=== PATIENT | female | born 1965 | race Caucasian/White ===

== ENCOUNTER 2021-02-23 05:24 | Day surgery (SDC) | payer SELFPAY, OTHER ==
[2020-10-31 14:19] VITALS: BMI 29.6
--- NOTE | 2021-02-22 09:01 | EKG12_ITS ---
Test Reason : PREOP Blood Pressure : / mmHG Vent. Rate : 069 BPM Atrial Rate : 069 BPM P-R Int : 166 ms QRS Dur : 080 ms QT Int : 434 ms P-R-T Axes : 059 030 080 degrees QTc Int : 465 ms Normal sinus rhythm Nonspecific T wave abnormality Prolonged QT Abnormal ECG Confirmed by ELVIA PATEL, FRANSISCA ([id number]), scientific editor ALEXANDRA DACOSTA ([id number]) on 02/23/2021 7:25:25 AM Referred By: Liliana Duran Confirmed By:FRANSISCA GAN MD
[2021-02-22 10:29] LABS: Absolute Neutrophil Count 2.8 X10^3/uL (2.0-7.7); Basophil# 0.03 X10^3/uL; Basophil% 0.6 % (0-1); Eosinophil# 0.28 X10^3/uL; Eosinophils% 5.4 % (0-5); Hematocrit 44.9 % (37-47); Hemoglobin 14.8 g/dL (12.0-15.0); Lymphocyte % 32.7 % (19-41); Mean Corpuscular Volume 90.9 fL (81-99); Mean Platelet Vol. 9.8 fl (6.2-12.0); Monocyte# 0.39 X10^3/uL; Monocyte% 7.5 % (0-10); NRBC Flagged by Analyzer 0 % (0-5); Neutrophil % 53.8 % (47-70); Platelet Count 232 K/mm3 (150-450); RBC Distribution Width SD 43.2 fl (35.1-43.9); Red Blood Count 4.94 M/mm3 (4.2-5.4); White Blood Count 5.2 K/mm3 (4.4-11.0)
[2021-02-22 10:53] LABS: Magnesium 2.2 mg/dL (1.6-2.6)
[2021-02-22 11:04] LABS: ALB/GLOB Ratio 0.9 RATIO (0.9-2.4); AST(SGOT) 14 U/L (15-37); Alanine Aminotransfer ALT/SGPT 24 U/L (13-56); Albumin, Serum 3.6 g/dL (3.2-5.0); Alkaline Phosphatase 84 U/L (45-117); Anion Gap 6 (5-15); BUN 9 mg/dL (7-18); BUN/Creat Ratio 14.2 RATIO (10-20); Calcium,Total 8.9 mg/dL (8.5-10.1); Chloride 106 mmol/L (98-107); Creatinine, Serum 0.64 mg/dL (0.55-1.02); EST Glomerular Filtration Rate 103 mL/min (>60); Est Glom Filt Rate - Afr Amer 124 mL/min (>60); Globulin 3.8 g/dL (2.2-4.2); Glucose 86 mg/dL (74-106); Protein, Total 7.4 g/dL (6.4-8.2); Sodium Level 141 mmol/L (136-145)
[2021-02-23] VITALS (14 sets, daily range): BP systolic 99–147; BP diastolic 53–103; PULSE 64–81; RESP 12–16; TEMP 36.1–37.1; O2SAT 92–100; BMI 32.8
[2021-02-23] MEDS: Celecoxib 200 MG Capsule 400 MG PO (06:22)
[2021-02-23] MEDS: Enoxaparin 40 MG/0.4 ML Syringe SC (06:22)
[2021-02-23] MEDS: Acetaminophen 500 MG Tablet 1000 MG PO ×3 (06:22→18:05)
[2021-02-23] MEDS: Gabapentin 600 MG Tablet PO (06:23)
[2021-02-23] MEDS: dexAMETHasone 10 MG/ML Vial 8 MG IV (06:23)
[2021-02-23] MEDS: Scopolamine 1mg/72hr Patch 1 PATCH TD (06:23)
[2021-02-23] MEDS: Lactated Ringers 1,000 ML 40 ML IV ×2 (06:24→08:45)
--- NOTE | 2021-02-23 07:16 | HP.PCM_ITS ---
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 she has uterine prolapse and will be having a TVHBS combo case with Dr Victor. Female Reproductive History Menopausal Symptoms: Yes hot flashes, Yes night sweats, No difficulty concentrating and No change in libido Pregancy History 6 Elective abortions Hx Para 6 Spontaneous abortions Hx # Term Pregnancies Ectopic pregnancies Hx # Pregnancies Multiple births # of living children ROS Const Constitutional: Reports night sweats Eyes Eyes: Denies system reviewed and no additional complaints, except as documented, as per HPI, blurry vision, change in vision, diplopia, dry eyes, irritation, loss of peripheral vision, photophobia, spots in vision or other ENT ENT: Reports system reviewed and no additional complaints, except as documented Cardio Card: Denies chest pain Resp Resp: Denies cough or dyspnea GI GI: Reports constipation; Denies abdominal pain, bloating, change in stool character, fecal incontinence, nausea or vomiting : Reports hot flashes, prolapse symptoms, urinary incontinence and vaginal dryness; Denies pelvic pain, sexual dysfunction, urinary frequency, urinary urgency, vaginal discharge, vaginal odor or vaginal pruritus Musc Musc: Denies arthralgias, back pain or muscle weakness Skin Skin/Breast: Denies system reviewed and no additional complaints, except as documented, as per HPI, acne, alopecia, change in hair, nail changes, change in pigmentation, changing lesions, dry skin, hirsutism, jaundice, lesions, new lesions, pruritus, rash, sores, breast mass, breast pain, breast skin changes or other Neuro Neuro: Reports system reviewed and no additional complaints, except as documented Psych Psych: Denies anxiety, change in libido, depression or difficulty concentrating Endo Endo: Denies cold intolerance, excessive sweating, heat intolerance or polydipsia Timmy/Lymph Hematologic/Lymphatic: Denies system reviewed and no additional complaints, except as documented, Denies as per HPI, Denies easy bleeding, Denies easy bruising, Denies lymphadenopathy and Denies other Exam Const General: cooperative, healthy appearing, comfortable, no acute distress and well developed Orientation: alert [facility] Head: normal to inspection, normocephalic and atraumatic Ears: hearing grossly normal bilaterally and external ears normal Nose: external nose normal and nares normal Face and sinus: normal facial exam Neck Neck: normal visual inspection, full ROM, no lymphadenopathy and trachea midline Thyroid: thyroid normal Chest Chest palpation & inspection: normal inspection of the chest Breast inspection: normal inspection of the breasts, normal inspection of the axillae, abnormal inspection of the axilla and abnormal inspection of the breast Resp Effort & Inspection: normal respiratory effort Auscultation: clear to auscultation bilaterally Cardio Rate: regular rate Rhythm: regular rhythm Heart Sounds: S1 normal and S2 normal GI Inspection: normal to inspection and non-distended Palpation: soft, no hepatosplenomegaly, no hepatomegaly, not rigid and nontender General: bladder normal to palpation External Female Exam: abnormal external appearance (atrophic introitus), normal appearance of the urethra and no lesions Urethra: normal appearance of the urethra Speculum Exam - Vagina: abnormal appearance of the vagina, normal vaginal discharge, vagina atrophic and no lesions Speculum Exam - Cervix: normal appearance of the cervix Bimanual Exam- Vagina & Uterus: normal bimanual exam, uterine size normal, bladder normal to palpation, uterine shape normal, uterine mobility normal and non-tender Bimanual Exam- Adnexa, other: normal adnexae, no masses, rectocele, cystocele and vaginal apex descent Pelvic Support: cystocele severe, rectocele severe, vaginal apex descent severe and other (complete uterine procidentia) Musc Other: gross motor intact no deficits, full bilateral strength Skin General: no rashes or lesions noted and atrophy Neuro General: patient alert, patient awake, moves all extremities and no focal motor deficits Motor: muscle tone normal throughout Extrem General: normal to inspection and no pedal edema Psych Appearance: grossly normal Mental Status: mental status grossly normal Affect: normal affect Speech and Movement: speech and movement normal Coding Level of Care Code No Charge Diagnoses Uterine procidentia N81.3 Assessment and Plan Assessment and Plan (1) Uterine procidentia: Status: Acute Comment: plan TVHBS, combo case with fidel- referred for evaluation by her Plan - Dr. Liliana Duran MD: After discussing the patient's diagnosis and treatment plan options, patient wishes to proceed with surgical management. I have discussed with the patient the risks, benefits, and alternatives of the procedure which include but are not limited to risks of anesthesia, bleeding, infection, possible damage to bowel, bladder, or surrounding vasculature which could lead to additional surgery to evaluate any complications. Patient agrees to procedure and wishes to proceed. ACOG/uptodate references given for additional information regarding procedure. 02/05/21 0441 UPDATE- I have seen the patient and performed any clinically relevant updates to the history and physical exam. Liliana Duran MD
--- NOTE | 2021-02-23 07:17 | OP.PCM_ITS ---
Problems Associated Problem List Diagnoses (1) Uterine procidentia: (2) S/P vaginal hysterectomy: Report of Operation Date of Procedure: 02/23/21 Pre-Operative Diagnosis: see PL Post-Operative Diagnosis: same Surgery/Procedure Performed:: TVH BS Description of Surgical Findings:: nl uterus tubes fast food manager: John Martinez Type of Anesthesia: General Specimen's removed: uterus, tubes, ovaries Drains: casey Fluids Replaced: crystalloid Description of Procedure: Patient was taken to the operating room and was placed under general anesthesia was prepped and draped in normal sterile fashion in the dorsal lithotomy position. Preoperative antibiotics and SCDs and Casey catheter was placed inside the bladder. Weighted speculum was placed in the vagina and the anterior and posterior lip of the cervix was grasped with 2 Mynor clamps and circumferentially injected with dilute vasopressin. A circumferential incision was made with a scalpel and the posterior cul-de-sac was entered into sharply and a longneck speculum was placed. The anterior cul-de-sac was also dissected down and entered into sharply and the uterosacral ligaments were clamped cut and suture ligated bilaterally followed by the cardinal ligaments which were Clamped cut and suture ligated bilaterally with 0 Monocryl. The uterus serially descended and progressive bites were taken bilaterally up to the level of the utero-ovarian ligament bilaterally which was clamped transected and double ligated with 0 Monocryl suture and 0 Vicryl free tie. Bilateral fallopian tubes and ovaries were well visualized and noted be within normal limits and the mesosalpinx was transected across the base with a alie clamp, then tubes removed and the pedicle ligated with O monocryl. Excellent hemostasis was noted. The vagina was closed with [id number] 0 Vicryl pop offs including the posterior and anterior peritoneum in the reapproximation. Excellent hemostasis was noted. Then Dr. Victor began her portion of the procedure. Grafts/Implants Used: none Complications none Admit VTE Documentation VTE Present on Admission: No VTE Mechan Device Prophylaxis: SCD's VTE Pharm Prophylaxis ordered?: Yes Multi Select Codes Urinary/Genital Urinary/Genital CPT Codes: 90828 TVH+BS/O <250gr uterus
--- NOTE | 2021-02-23 07:20 | PCM.DC ---
Discharge Instructions Diet Discharge Diet: No restrictions Activity Discharge Activity: Return to Normal Activity, May Not Drive (while taking narcotic pain medications.) and May Shower May resume sexual activity in: 6-8 weeks Dressing / Incision Call your doctor if your incision/area has: Continuous Slow Oozing, Sudden Increased Bleeding, Increased Pain/ Swelling, Increased Redness and Foul Smelling Discharge Call your doctor if you observe: Fever of 101 or Higher, Inability to urinate, Inability to have a bowel movement and Using more than 1 pad per hour Follow Up Care Please Follow Up With: Liliana Duran MD Test Results: Test results from this visit will be discussed in further detail at your follow-up appointment, if applicable. Discharge Plan Admission Primary Reason for Your Visit: hysterectomy Attending Provider: Liliana Duran Primary Care Provider: Juan Antonio Lopez Discharge Orders/Prescriptions Prescriptions: New naproxen 250 MG tablet 250 - 500 mg PO Q8H PRN PRN (Reason: MILD PAIN) Qty: 30 RF: 1 oxycodone-acetaminophen [Percocet] 5-325 mg tablet 1 tab PO Q6H PRN (Reason: pain) 7 Days Qty: 20 RF: 0 Referrals / Follow Up: Juan Antonio Lopez DO [Primary Care Provider] - Disposition Disposition (needs filled in before D/C Order can be placed): Home, Self Care
--- NOTE | 2021-02-23 07:30 | HYST_PTH ---
PATIENT: DOROTA CANADA LOC: [facility] [place] U#:[id number] AGE/SX: 55/F ROOM: RE02/23/[address]: Dr. Liliana Duran MD : [id number] BED: DIS: 02/24/2021 SPEC #: [id number] RECD: 02/23/21 14:29 STATUS: ZOYA REKatrina #: [id number] RASHAWN: 02/23/21 07:[address]: Liliana Duran DEPT: SURGICAL PATHOLOGY RECD BY: Dequan uFlton ENTERED: 02/26/21 08:13 SP TYPE: HYSTERECT OTHR DR: Dr. Juan Antonio Lopez DO Tissues: Uterus, NOS Procedures: Surgery Specimen Level V HEADER OPERATION: ERAS, vaginal hysterectomy, salpingectomy PRE-OP DIAGNOSIS: Uterine procidentia TISSUE SUBMITTED: Uterus, cervix, bilateral fallopian tubes MICROSCOPIC DIAGNOSIS Uterus, hysterectomy: Cervix ? hyperkeratosis, nabothian cysts, squamous metaplasia and mild chronic inflammation. Endometrium ? weakly proliferative to inactive endometrium. Myometrium ? adenomyosis. Right and left fallopian tube - no pathologic change. AM:elder 02/27/2021 MICROSCOPIC DESCRIPTION Slides are reviewed. GROSS DESCRIPTION Received in fixative is one container labeled with the patient's name and designated uterus, cervix and bilateral fallopian tubes. The specimen consists of a hysterectomy specimen consisting of uterus with cervix and detached bilateral fallopian tubes. The uterus with cervix weighs 98 gm and measures 11 x 5 x 3.5 cm. The serosal surface is franco, glistening. The ectocervical mucosa is unremarkable. The external os is oval in contour. The endocervical canal measures 3.5 cm in length and the endocervical mucosa is franco, glistening and unremarkable. The endometrial cavity measures 4.5 cm in length and 1 cm in width. The endometrium is franco, glistening without any mass lesion and measures <0.1 cm in thickness. Sections of the uterine wall do not reveal any mass lesion and it measures up to 2 cm in width. The fallopian tubes are not identified as right or left. One of the fallopian tubes measure 3 cm in length and 0.5 cm in diameter. The fimbrial end is identified. Sections reveal unremarkable cut surfaces. The second fallopian tube measures 3 cm in length and 0.5 cm in diameter. It is similar appearance to the first one. Food Writer sections are submitted in eight cassettes as follows: 1 - anterior cervix, 2 - posterior cervix, 3 & 4 - anterior uterine wall, 5 & 6 - posterior uterine wall, 7 - one fallopian tube, 8 - second fallopian tube. / SEAN:elder 02/26/21 TC:5 CPT: 81827
[2021-02-23] MEDS: Cefazolin 2 GM in 0.9% Normal Saline 100 ML IV (07:46)
[2021-02-23] MEDS: Vasopressin 20 UNITS/ML Vial (10:00)
[2021-02-23 10:16] LABS: Bedside Glucose 78 mg/dL (70-110)
[2021-02-23] MEDS: Ondansetron 4 MG/2 ML Vial IV (11:07)
[2021-02-23] MEDS: Estrogens,Conj. 1 Tube 1 DOSE (11:13)
--- NOTE | 2021-02-23 11:23 | OP.PCM_ITS ---
Problems Associated Problem List Diagnoses (1) Uterine procidentia: (2) PHANI (stress urinary incontinence, female): Report of Operation Date of Procedure: 02/23/21 Pre-Operative Diagnosis: Uterine procidentia, stress urinary incontinence Post-Operative Diagnosis: Same Surgery/Procedure Performed:: Anterior and posterior repair with dermis, bilateral sacrospinous ligament fixation, mid urethral sling, cystoscopy with bilateral ureteral catheterization Surgeon: Ashwini Victor Type of Anesthesia: General Specimen's removed: None Estimated Blood Loss (mL): 50 cc Description of Procedure: The patient is a 55-year-old female with uterine procidentia and stress urinary incontinence who has undergone preoperative assessment with urodynamics and cystoscopy but now presents for definitive surgical intervention. Informed consent was obtained. The patient was taken to the operating room and placed on the operating room table. Anesthesia monitored the head, neck, airway, IV access and vital signs throughout the case. Once anesthesia was appropriate ministered the patient was placed into dorsal lithotomy in Trendelenburg position. Dependent portions of her body were appropriately padded and secured to the table, and she was prepped and draped in usual sterile fashion. At this time a Ang catheter 16 Tristanian was inserted to straight drain and the bladder was emptied. Dr. Duran proceeded with her portion of the procedure and close the cuff at the end. At this time I isolated the anterior vaginal wall and injected submucosally vasopressin for hydrostatic dissection and hemostatic control. A midline vertical 2 cm incision was then made. Sharp and blunt dissection was performed bilaterally all the way until the ischial spines were palpable and freed from surrounding tissues. At this time the Capio device was utilized to pass an Ethibond suture through each sac rospinous ligament. The suture was then brought through the corner of the dermis on each side. It was tacked in the midline at the apex. The Ethibond was then tied into position and then brought out through the vaginal mucosa in full-thickness fashion at the area of the apex. This was done bilaterally. The dermis was then trimmed to length and sutured into position using interrupted 2- 0 Vicryl at the area of the bladder neck and bilaterally at the area of the white line. At this time the vaginal mucosa, while significantly redundant, was closed using running interlocking 2-0 Vicryl. At this time the patient was taken out of Trendelenburg positioning, the Ang catheter was removed and the cystoscope was inserted through the urethra under direct visualization into the urinary bladder. There were no areas of injury, foreign body, bleeding, or other abnormality identified. Each ureteral orifice was in the correct anatomic position and beginning with the left each was cannulated carefully with a 5 Tristanian whistle-tip catheter which was inserted to 20 cm without difficulty, obstruction or evidence of blood. The same process was repeated posteriorly with submucosal injection of vasopressin followed by incision and sharp and blunt dissection until the ischial spines were identified and the previous sutures were palpable. A second suture was then passed and the Ethibond was b rought through the remainder of the dermis and then out through the apex laterally full-thickness vaginal mucosa. Once again the dermis was tacked at the apex using 2-0 Vicryl. The Ethibonds were tied into position on each side. The dermis was trimmed to fit, sutured into position posteriorly close to the perineal body and bilaterally at the white line. This time the perineal body was reconstructed using 2-0 Vicryl interrupted sutures in a 2 layer closure. The posterior vaginal mucosa was then closed using running interlocking 2-0 Vicryl. The mid urethra was isolated and injected submucosally with vasopressin. A midline incision was made and sharp and blunt dissection was performed on either side of the urethra with care being taken to avoid entrance into the urethra or the vaginal mucosa. Using the trochars, the [place] mid urethral sling was inserted into position through the obturator complexes bilaterally using the tines. It was positioned using the tensioning suture and was flat against the urethra. The tensioning suture was cut and the mucosa was closed over the sling using running interlocking 2-0 Vicryl. At this time the Ang catheter was removed and the cystoscope was inserted through the urethra under direct visualization into the urinary bladder. The bladder mucosa and the urethral mucosa were visualized in their entirety revealing no evidence of injury, foreign body mass, lesion or area of abnormality. The ureteral orifices were located in the area of the trigone and were gently cannulated with a 5 Tristanian whistle-tip catheter which was easily inserted to 20 cm on each side without evidence of obstruction or blood. At this time the cystoscope was removed and the Ang catheter was inserted. The vagina was packed with Premarin cream and vaginal packing. The patient was awakened and taken to the recovery room in good condition. There were no complications during this procedure. Grafts/Implants Used: Dermis, Altis mid urethral sling Complications None Admit VTE Documentation VTE Present on Admission: Yes VTE Mechan Device Prophylaxis: SCD's VTE Pharm Prophylaxis ordered?: Yes
--- NOTE | 2021-02-23 11:46 | HP.PCM_ITS ---
HPI - General General Date of Admission: 02/23/21 HPI Narrative I am dictating this is my previously submitted history and physical is not identified in the chart. DOROTA CANADA, is a 55 F who presents for surgical intervention for her uterine procidentia and incontinence. Informed consent was obtained. [facility] Medical History History of echocardiogram Hypertension Non-smoker Post-menopausal PHANI (stress urinary incontinence, female) Wears dentures Wears glasses Home Medications naproxen 250 - 500 mg PO Q8H PRN PRN #30 tab 02/23/21 [Rx Last Taken Unknown] oxycodone-acetaminophen [Percocet] 1 tab PO Q6H PRN 7 Days #20 tab 02/23/21 [Rx Last Taken Unknown] Allergy/AdvReac Type Severity Reaction Status Date / Time No Known Allergies Allergy Verified 02/23/21 05:31 Social History Smoking Status: Never smoker alcohol intake: never caffeine: No seatbelt use: always do you feel safe at home: Yes additional social history: Jesus DE LA O Constitutional Constitutional: Denies body ache(s), change in weight, chills, fatigue, fever(s) or weakness Eyes Eyes: Denies change in vision ENT HEENT: Reports systems reviewed and no addt'l complaints, except as documented Cardiovascular Cardiovascular: Denies dizziness, dyspnea, fatigue, tachypnea or vomiting Respiratory/Chest Respiratory/Chest: Denies chest congestion, chest tightness or cough Gastrointestinal Gastrointestinal: Denies change in stool character, nausea, vomiting or weight changes Genitourinary Genitourinary: Reports urinary incontinence and urinary urgency; Denies abdominal discomfort, anuria or burning urination Musculoskeletal Musculoskeletal: Reports systems reviewed and no addt'l complaints, except as documented Integumentary Integumentary: Reports systems reviewed and no addt'l complaints, except as documented Neurologic Neurologic: Reports systems reviewed and no addt'l complaints, except as documented Psychiatric Psychiatric: Reports systems reviewed and no addt'l complaints, except as documented Endocrine Endocrinology: Reports systems reviewed and no addt'l complaints, except as documented Hematologic/Lymphatic Hematologic/Lymphatic: Reports systems reviewed and no addt'l complaints, except as documented Allergic/Immunologic Allergic/Immunologic: Reports systems reviewed and no addt'l complaints, except as documented Vital Signs Vital Signs Vital Signs: 02/23/21 06:25 02/23/21 11:26 Temperature 98.4 F 97.6 F L Temperature Source Temporal Temporal Pulse Rate 77 71 Respiratory Rate 16 16 Respiratory Pattern Normal Normal Blood Pressure 147/103 H 101/66 Blood Pressure Mean 117 77 Blood Pressure Source Monitor Monitor Blood Pressure Position Semi-Fowlers Semi-Fowlers Blood Pressure Location Left Arm Right Arm Baseline BP 147/103 Pulse Ox 97 98 Oxygen Delivery Method Room Air Room Air Weight Weight: 92.4 kg Body Mass Index (BMI) 32.8 Physical Exam Const alert, oriented x3 and no apparent distress General Appearance: cooperative HEENT hearing grossly normal bilaterally, external nose normal and gingiva normal Eyes conjunctivae normal General Eye: normal appearance of both eyes Neck supple General: trachea midline Lymph Lymphatic: no lymphedema noted Chest inspection of chest normal Chest: symmetrical chest wall rise Resp normal respiratory effort, normal air movement, no retractions and no use of accessory muscles Cardio regular rate and regular rhythm GI soft to palpation, non-tender, non-distended and no masses no CVA tenderness Narrative: Total procidentia on examination Back/Spine no CVA tenderness Extremity normal to inspection Skin no rashes or lesions noted, no wounds, skin turgor normal, no jaundice, no petechiae and no mottling Neuro oriented x3, CN's II-XII intact bilaterally and moves all extremities Psych mental status grossly normal, thought process normal, cooperative and affect normal Results Lab / Micro Data Result Diagrams: 02/22/21 09:20 02/22/21 09:20 Labs: Laboratory Results - last 24 hr 02/22/21 09:20: Blood Type B POSITIVE, Antibody Screen NEGATIVE 02/23/21 06:06: POC Glucose 78 Micro: Microbiology 02/22/21 09:00 Interface Orders SARS-CoV-2 Antigen (Rapid) - Final Assessment & Plan Assessment/Plan (1) PAHNI (stress urinary incontinence, female): (2) Uterine procidentia: PLAN: Proceed with anterior and posterior repair, bilateral sacrospinous ligament fixation, mid urethral sling and cystoscopy under anesthesia in combination with Dr. Duran. Informed consent obtained.
[2021-02-23] MEDS: Lactated Ringers 1,000 ML 70 ML IV (13:20)
[2021-02-23] MEDS: Docusate Sodium 100 MG Capsule PO ×2 (14:07→21:51)
[2021-02-23] MEDS: Ketorolac 30 MG/ML Syringe IV ×2 (14:09→18:05)
--- NOTE | 2021-02-23 15:57 | NURSING ---
reviewed documentation by Alirio Rutledge, student RN
[2021-02-23] MEDS: Ondansetron ODT 4 MG Tablet PO (17:23)
--- NOTE | 2021-02-23 21:36 | PCS.PANDOC ---
PANDEMIC DOCUMENTATION INITIATED: Date: 12/11/2020 Time: 190
[2021-02-23] MEDS: Cephalexin 500 MG Capsule PO (21:51)
[2021-02-24] MEDS: Acetaminophen 500 MG Tablet 1000 MG PO (00:53)
[2021-02-24 01:06] VITALS: BP 106/56; PULSE 84; RESP 16; TEMP 37.1; O2SAT 92
--- NOTE | 2021-02-24 01:36 | NURSING ---
This RN had pt change wagner pad. When the pt stood her surgical packing came out. This was disposed of. No additional bleeding immediately following.
[2021-02-24] MEDS: Lactated Ringers 1,000 ML 70 ML IV (04:28)
[2021-02-24 06:22] VITALS: BP 100/55; PULSE 74; RESP 17; TEMP 37.1; O2SAT 94
--- NOTE | 2021-02-24 06:53 | PCM.PN.OB ---
Subjective Subjective Patient doing well without complaints. Tolerating PO. Ambulating without difficulty. Denies chest pain, shortness of breath, calf pain/swelling, fevers, chills, lightheadedness.need to void yet cath in Objective Data Objective Data Vital Signs: Vital Signs Temp Pulse Resp BP Pulse Ox 98.7 F 74 17 100/55 L 94 02/24/21 06:22 02/24/21 06:22 02/24/21 06:22 02/24/21 06:22 02/24/21 06:22 Oxygen Flow Rate (L/min) 2 Oxygen Delivery Method Room Air Weight: 203 lb 11.314 oz Body Mass Index (BMI) 32.8 Intake & Output: Intake and Output for Last 24 Hours 02/22/21 02/23/21 02/24/21 23:59 23:59 23:59 Intake Total 2615.5 / 3115.5 1900 / 1900 Output Total 1575 / 1975 875 / 875 Balance 1040.5 / 1140.5 1025 / 1025 Lab / Micro Data Result Diagrams: 02/22/21 09:20 02/22/21 09:20 Labs: Laboratory Results - last 24 hr 02/23/21 06:06: POC Glucose 78 Micro: Microbiology 02/22/21 09:00 Interface Orders SARS-CoV-2 Antigen (Rapid) - Final ROS Constitutional Constitutional: Reports systems reviewed and no addt'l complaints, except as documented Cardiovascular Cardiovascular: Reports systems reviewed and no addt'l complaints, except as documented Respiratory/Chest Respiratory/Chest: Reports systems reviewed and no addt'l complaints, except as documented Gastrointestinal Gastrointestinal: Reports systems reviewed and no addt'l complaints, except as documented Physical Exam Const alert, oriented x3 and no apparent distress HEENT Head and Scalp: atraumatic Resp normal respiratory effort GI soft to palpation and non-tender Assessment & Plan (1) PHANI (stress urinary incontinence, female): (2) S/P vaginal hysterectomy: COMMENT: tvhbs (3) Uterine procidentia: COMMENT: plan TVHBS, combo case with fidel- referred for evaluation by her PLAN: patient is s/p tvh POD 1 1. routine ERAS protocol postop care- increase ambulation, encourage oral intake and oral control of pain. lovenox and scds for dvt prophylaxis, patient stable for discharge to home.
[2021-02-24 07:24] VITALS: O2SAT 94
[2021-02-24 07:50] LABS: Absolute Lymphocyte Count 0.96 X10^3/uL (0.83-4.51); Absolute Neutrophil Count 9.1 X10^3/uL (2.0-7.7); Basophil# 0.01 X10^3/uL; Basophil% 0.1 % (0-1); Hematocrit 36.4 % (37-47); Hemoglobin 12.3 g/dL (12.0-15.0); Lymphocyte # 0.96 X10^3/ul (0.83-4.51); Lymphocyte % 8.9 % (19-41); Mean Corp Hgb Conc 33.8 g/dL (32-36); Mean Corpuscular Hgb 30.4 pg (27.0-32.0); Mean Corpuscular Volume 90.1 fL (81-99); Mean Platelet Vol. 9.8 fl (6.2-12.0); Monocyte# 0.58 X10^3/uL; Monocyte% 5.4 % (0-10); NRBC Flagged by Analyzer 0 % (0-5); Neutrophil # 9.14 X10^3/uL (2.7-7.7); Neutrophil % 85.1 % (47-70); Platelet Count 211 K/mm3 (150-450); RBC Distribution Width CV 13.1 % (11.6-14.6); RBC Distribution Width SD 43.8 fl (35.1-43.9); Red Blood Count 4.04 M/mm3 (4.2-5.4); White Blood Count 10.7 K/mm3 (4.4-11.0)
[2021-02-24] MEDS: Cephalexin 500 MG Capsule PO (08:10)
[2021-02-24] MEDS: Docusate Sodium 100 MG Capsule PO (08:11)
[2021-02-24] MEDS: Enoxaparin 40 MG/0.4 ML Syringe SC (08:11)
--- NOTE | 2021-02-24 08:16 | PCM.DC ---
Discharge Instructions Diet Discharge Diet: No restrictions Activity Discharge Activity: May Shower May resume sexual activity in: 8 weeks Lifting Restrictions: 5 pounds Additional Activity Instructions:: No exercise, no strenuous activity, no sexual activity, no swimming, no hot tubs, no tub bathing Dressing / Incision Call your doctor if your incision/area has: Continuous Slow Oozing, Sudden Increased Bleeding, Increased Pain/ Swelling, Increased Redness and Foul Smelling Discharge Call your doctor if you observe: Fever of 101 or Higher, Inability to urinate, Inability to have a bowel movement, Using more than 1 pad per hour and Uncontrolled pain Additional Dressing/Incision Instructions:: continue estrogen cream Follow Up Care Please Follow Up With: Liliana Duran MD When: , call the office for appt. Test Results: Test results from this visit will be discussed in further detail at your follow-up appointment, if applicable. Discharge Plan Admission Primary Reason for Your Visit: hysterectomy Attending Provider: Liliana Duran Primary Care Provider: Juan Antonio Lopez Discharge Orders/Prescriptions Prescriptions: New naproxen 250 MG tablet 250 - 500 mg PO Q8H PRN PRN (Reason: MILD PAIN) Qty: 30 RF: 1 oxycodone-acetaminophen [Percocet] 5-325 mg tablet 1 tab PO Q6H PRN (Reason: pain) 7 Days Qty: 20 RF: 0 cephalexin [cephalexin] 500 MG capsule 500 mg PO Q12 3 Days Qty: 6 RF: 0 Referrals / Follow Up: Juan Antonio Lopez DO [Primary Care Provider] - Disposition Disposition (needs filled in before D/C Order can be placed): Home, Self Care
[2021-02-24 14:30] VITALS: BP 123/75; PULSE 81; RESP 16; TEMP 36.7; O2SAT 97
== END 2021-02-24 15:05 | disposition home or self-care (01) ==
LOC: SDC 05:25 → AC 05:26 → MS2 12:18
PROVIDERS: Anesthesiology; Urology; PCP Family Medicine; Referring Provider Obstetrics & Gynecology; Visit Provider Obstetrics & Gynecology
PROC: (CPT 58260; principal; 2021-02-23 07:10)
PROC: (CPT 57260; 2021-02-23 07:10)
DX: N81.3 Complete uterovaginal prolapse (principal); N39.3 Stress incontinence (female) (male); N87.0 Mild cervical dysplasia; N80.0 Endometriosis of uterus
CPT/HCPCS: 00942; 57260; 57282; 57288; 58262; 36415; 80053; 82962; 83735; 85025; 86850; 86900; 86901; 87426; 88307; 93005; 99251; C9803; J7120; C1758; G0463; J2405

== ENCOUNTER 2025-02-24 11:40 | Inpatient (IN) | payer OTHER, SELFPAY ==
[2025-02-24] VITALS (12 sets, daily range): BP systolic 130–182; BP diastolic 74–101; PULSE 89–107; RESP 14–38; TEMP 36.5–36.6; O2SAT 88–99; BMI 34.3; BMI 36.1
--- NOTE | 2025-02-24 11:55 | CT_ITS ---
PROCEDURE: CT/CTA Chest W/WO Contrast
--- NOTE | 2025-02-24 11:55 | EKG12_ITS ---
Test Reason : CP
--- NOTE | 2025-02-24 11:56 | ED.VIS.CHEST ---
HPI History of Present Illness Chief Complaint: Chest Pain Narrative Narrative: Patient is a 59-year-old female presenting to the emergency department for left-sided chest pain underneath her left breast. Patient states that it started last night. She is endorsing some mild shortness of breath with it as well. She had a recent surgery for prolapsed bladder about 2 weeks ago and stayed in the hospital overnight. She denies any history of DVT or PE. She is not on any OAC, denies any medication use daily. Patient denies fever, chills, diaphoresis, abdominal pain, nausea or vomiting denies any lower extremity edema. [facility] Medical History PHANI (stress urinary incontinence, female) Wears dentures Wears glasses Post-menopausal Non-smoker History of echocardiogram Hypertension Home Medications ?Medication ?Instructions ?Recorded ?Last Taken ?Type docusate sodium 100 mg capsule 100 mg PO BID constipation 02/24/25 02/24/25 History estradiol 0.01% (0.1 mg/gram) 1 g vaginal .COMPLEX 02/24/25 02/10/25 History vaginal cream oxycodone 5 mg tablet 5 mg PO Q6H PRN pain 02/24/25 02/24/25 History Allergy/AdvReac Type Severity Reaction Status Date / Time No Known Allergies Allergy Verified 02/24/25 11:44 Surgical History History of bilateral salpingectomy History of total vaginal hysterectomy (TVH) Social History Smoking Status: Never smoker alcohol intake: never caffeine: No seatbelt use: always do you feel safe at home: Yes additional social history: Jadon- ROS ROS ED ROS Narrative See HPI EXAM Physical Exam Narrative Exam Narrative: Vital signs: Reviewed General: Alert and orientedx3. No acute distress HEENT: Head is normocephalic and atraumatic, sinuses nontender, pupils equal round and reactive. Nares are patent. Oropharynx and throat exams normal. Neck: Supple without lymphadenopathy nontender Cardiovascular: Regular rate and rhythm, no murmurs. No rubs or gallops. Normal S1 and S2 Respiratory: Clear to auscultation bilaterally. No wheezes, rales, rhonchi. On 2 L NC. Abdominal: Soft and nontender. Normal bowel sounds. No guarding or rebound. Nonsurgical abdomen Extremities: No asymmetric lower extremity edema noted. No tenderness. No bruising. Normal range of motion. Normal sensation. Skin: No rash or redness. Neurological: Cranial nerves II through XII are grossly intact. Normal strength and sensation. Normal cerebellar function The rest of the physical exam is unremarkable Const Vital Signs: 02/24/25 11:42 02/24/25 11:44 02/24/25 11:57 Temperature 97.8 F 98 F Temperature Source Oral Temporal Pulse Rate 107 H 94 Respiratory Rate 24 H 32 H Respiratory Effort Normal Non-Labored Blood Pressure 182/101 H 142/91 H Blood Pressure Mean 128 108 Pulse Ox 88 95 Oxygen Delivery Method Room Air Nasal Cannula Oxygen Flow Rate (L/min) 2 02/24/25 12:02 02/24/25 12:23 02/24/25 12:41 Temperature Temperature Source Pulse Rate 92 Respiratory Rate 14 Respiratory Effort Blood Pressure 168/96 H Blood Pressure Mean 120 Pulse Ox 96 95 94 Oxygen Delivery Method Nasal Cannula Nasal Cannula Nasal Cannula Oxygen Flow Rate (L/min) 2 2 2 02/24/25 12:44 02/24/25 13:00 Temperature Temperature Source Pulse Rate 93 Respiratory Rate 36 H Respiratory Effort Blood Pressure 130/74 H Blood Pressure Mean 92 Pulse Ox 98 99 Oxygen Delivery Method Nasal Cannula Nasal Cannula Oxygen Flow Rate (L/min) 2 3 MDM MDM MDM Narrative Medical decision making narrative: Patient is a 5-year-old female presenting to the emergency department for left-sided chest pain. Patient was seen and examined. Vitals are stable. She is tachycardic at 107 and tachypneic at 24. Saturating 88% on room air, was then placed on 2 L nasal cannula. She is afebrile. Differential includes but is not limited to: PE, ACS, pneumonia With recent surgical procedure and tachycardia with new oxygen requirement secondary to hypoxia, concern for open embolism. CTA of the chest ordered. EKG shows sinus tachycardia with nonspecific ST and T wave abnormalities. CBC with mild leukocytosis at 12.5 and a normal hemoglobin. BMP with no significant abnormalities. Initial troponin of 28. BNP within normal limits at 77. CTA of the chest obtained due to high concern for pulmonary embolism given recent surgery. CTA shows multiple bilateral pulmonary emboli. Discussed findings with patient and at bedside. Still requiring 2 to 3 L nasal cannula, requires admission. Patient has no contraindications for initiation of heparin. Heparin bolus and drip started. Patient admitted to hospitalist, Dr. Chopra for further management. Clinical impression: Bilateral pulmonary emboli Chest pain Hypoxia History & Record Review Discussion w/independent historian: Patient and Family Lab Data Attestation: I reviewed the patient's lab results. Labs: Laboratory Results - last 24 hr 02/24/25 12:14 WBC 12.5 H RBC 4.59 Hgb 13.8 Hct 40.1 MCV 87.4 MCH 30.1 MCHC 34.4 RDW Std Deviation 42.3 RDW Coeff of Tonya 13.2 Plt Count 231 MPV 9.1 Immature Gran % (Auto) 0.400 Neut % (Auto) 82.2 H Lymph % (Auto) 10.1 L [place] % (Auto) 6.6 Eos % (Auto) 0.4 Baso % (Auto) 0.3 Absolute Neuts (auto) 10.3 H Absolute Lymphs (auto) 1.27 Nucleated RBC % 0 PT 13.7 INR 1.0 APTT 31.0 Sodium 134 Potassium 4.1 Chloride 98 Carbon Dioxide 23.8 Anion Gap 13 BUN 12 Creatinine 0.67 L Estim Creat Clear Calc 104.62 Est GFR (MDRD) Non-Af 100 BUN/Creatinine Ratio 17.5 Glucose 126 H Calcium 9.5 Troponin T High Sens 28 H NT pro BNP II 77 ABG Data ABG results: ABG 02/24/25 12:28 Specimen Type LUCIANA Sample Site Not entered VBG pH 7.43 H VBG pO2 59 H VBG HCO3 24 VBG Total CO2 25 VBG O2 Sat (Calc) 91 H VBG Base Excess 0 POC Mix VBG pCO2 Pt Tmp 36.4 L O2 Delivery Device Not entered Radiography Diagnostic Testing: Clinical Impression(s) from Imaging Studies Chest CTA 02/24/25 11:55 IMPRESSION: Multiple bilateral pulmonary emboli. Thrombus is seen within the distal portion of the right and left pulmonary arteries. Infiltration and/or atelectasis at the lung bases worse at the left lung base. Reading Location: [id number] Discharge Plan Disposition Disposition: Acute Care Hospital [facility] Discharge Date/Time: 02/24/25 14:28
[2025-02-24 12:31] LABS: Hematocrit 40.1 % (37-47); Hemoglobin 13.8 g/dL (12.0-15.0); Immature Granulocytes Count 0.050 X10^3/uL (0.0-0.0); Mean Corp Hgb Conc 34.4 g/dL (32-36); Mean Corpuscular Volume 87.4 fL (81-99); Mean Platelet Vol. 9.1 fl (6.2-12.0); NRBC Flagged by Analyzer 0 % (0-5); Platelet Count 231 K/mm3 (150-450); RBC Distribution Width CV 13.2 % (11.6-14.6); RBC Distribution Width SD 42.3 fl (35.1-43.9); Red Blood Count 4.59 M/mm3 (4.2-5.4); White Blood Count 12.5 K/mm3 (4.4-11.0)
[2025-02-24 12:33] LABS: SITE Not entered; VBG BASE EXCESS 0 mmol/L (-1.0-3.5); VBG PO2 59 mmHg (25-40); VBG SO2 91 % (50-70); VBG TCO2 25 mmol/L (23-33)
[2025-02-24] MEDS: Heparin Injection (Vial) 5,000 UNIT/ML VIAL 7500 UNIT IV (12:55)
[2025-02-24] MEDS: HEPARIN/D5w 25,000 UNITS 25,000 UNITS/250 ML IV.SOLN. 11.6 UNITS CONT INF (12:56)
[2025-02-24 12:59] LABS: Partial Thromboplast Time 31.0 Seconds (24.1-36.2); Prothrombin Time (Protime)PT. 13.7 SECONDS (11.7-14.9)
[2025-02-24 13:14] LABS: Anion Gap 13 (5-15); BUN 12 mg/dL (4-19); BUN/Creat Ratio 17.5 RATIO (10-20); Calcium,Total 9.5 mg/dL (7.6-11.0); Carbon Dioxide 23.8 mmol/L (21.0-32.0); Chloride 98 mmol/L (98-108); Estimated Creatinine Clearance 104.62 ml/min (50-250); Glucose 126 mg/dL (70-99); Potassium 4.1 mmol/L (3.3-5.1); Pro- Brain NATRIURETIC PEPTIDE 77 pg/mL (<=900); Troponin T High Sensitivity 28 ng/L (<=14)
--- NOTE | 2025-02-24 13:40 | PCM.HP.STD ---
HPI - General General Date of Admission: 02/24/25 Date of Service: 02/24/25 Chief Complaint: Chest discomfort and shortness of breath HPI Narrative DOROTA CANADA, is a 59 F who presented to [facility] ED on 02/24/2025 with chest discomfort and shortness of breath. Patient is an [employer] female, lives at home with her . Has minimal past medical history. She recently had a bladder prolapse procedure done 2 weeks ago in [place]. Did well with the procedure, no intraoperative complications. She has not been as active as she typically is since then. She developed left-sided discomfort in the lower chest to just underneath her left breast recently. She then started to become short of breath with exertion so she came in for further evaluation. CTA chest showed multiple bilateral pulmonary emboli with thrombus seen within the distal portion of the right and left pulmonary arteries, no right heart strain called. Patient is on home oxygen and was requiring 3 L nasal cannula in the ED at rest to maintain appropriate oxygen saturations. Given the new oxygen requirement, hospitalist was contacted for admission. I saw the patient at bedside in the ED, is present. Patient was mildly fatigued appearing and had a flat affect but was otherwise sitting back comfortably in bed and answering questions appropriately. She denies any prior history of DVT/PE. Denies any lower leg pain or swelling. Is not on any medications at home. Notes that she did take a dose of p.o. oxycodone at home as given to her after her bladder surgery for the left-sided chest discomfort with some improvement. No other acute concerns currently. Will be admitted for further management. [facility] Medical History PHANI (stress urinary incontinence, female) Wears dentures Wears glasses Post-menopausal Non-smoker History of echocardiogram Hypertension Allergy/AdvReac Type Severity Reaction Status Date / Time No Known Allergies Allergy Verified 02/24/25 11:44 Surgical History History of bilateral salpingectomy History of total vaginal hysterectomy (TVH) Social History Smoking Status: Never smoker alcohol intake: never caffeine: No seatbelt use: always do you feel safe at home: Yes additional social history: Jesus [place] LA O Constitutional Constitutional: Reports fatigue; Denies chills, fever(s) or weakness Eyes Eyes: Denies change in vision Cardiovascular Cardiovascular: Reports chest pain and dyspnea on exertion; Denies edema, lightheadedness, orthopnea or palpitations Respiratory/Chest Respiratory/Chest: Denies cough, productive cough, shortness of breath at rest or wheezing Gastrointestinal Gastrointestinal: Denies abdominal pain Musculoskeletal Musculoskeletal: Denies arthralgias or myalgias Neurologic Neurologic: Denies dizziness, focal weakness or headache(s) Vital Signs Vital Signs Vital Signs: 02/24/25 11:42 02/24/25 11:44 02/24/25 11:57 Temperature 97.8 F 98 F Temperature Source Oral Temporal Pulse Rate 107 H 94 Respiratory Rate 24 H 32 H Respiratory Effort Normal Non-Labored Blood Pressure 182/101 H 142/91 H Blood Pressure Mean 128 108 Pulse Ox 88 95 Oxygen Delivery Method Room Air Nasal Cannula Oxygen Flow Rate (L/min) 2 02/24/25 12:02 02/24/25 12:23 02/24/25 12:41 Temperature Temperature Source Pulse Rate 92 Respiratory Rate 14 Respiratory Effort Blood Pressure 168/96 H Blood Pressure Mean 120 Pulse Ox 96 95 94 Oxygen Delivery Method Nasal Cannula Nasal Cannula Nasal Cannula Oxygen Flow Rate (L/min) 2 2 2 02/24/25 12:44 02/24/25 13:00 Temperature Temperature Source Pulse Rate 93 Respiratory Rate 36 H Respiratory Effort Blood Pressure 130/74 H Blood Pressure Mean 92 Pulse Ox 98 99 Oxygen Delivery Method Nasal Cannula Nasal Cannula Oxygen Flow Rate (L/min) 2 3 Weight Weight: 96.6 kg Body Mass Index (BMI) 34.3 Physical Exam Const alert, oriented x3 and no apparent distress Constitutional Narrative: Upper middle-aged female, class I obesity, mildly fatigued appearing and flat affect noted, otherwise sitting back comfortably in bed and answering questions appropriately. General Appearance: cooperative and comfortable HEENT normocephalic, head/scalp atraumatic, hearing grossly normal bilaterally, nasal mucous membranes and turbinates normal and moist oral mucous membranes Eyes PERRL, EOMs intact bilaterally and conjunctivae normal Neck full ROM Chest inspection of chest normal Resp normal respiratory effort and no use of accessory muscles Resp Narrative: Breathing comfortably on 3 L nasal cannula at rest. Mildly diminished breath sounds in bilateral lung bases, otherwise good air movement throughout with no wheezing noted. Cardio regular rate, regular rhythm, no murmurs and peripheral pulses 2+ throughout GI normal to inspection, nondistended, normoactive bowel sounds, soft to palpation, non-tender and non-distended Back/Spine normal ROM Extremity Extremity Narrative: No lower extremity edema or swelling noted. Skin no rashes or lesions noted Psych mental status grossly normal Results Lab / Micro Data 02/24/25 12:14 02/24/25 12:14 Labs: Laboratory Results - last 24 hr 02/24/25 12:14: WBC 12.5 H, RBC 4.59, Hgb 13.8, Hct 40.1, MCV 87.4, MCH 30.1, MCHC 34.4, RDW Std Deviation 42.3, RDW Coeff of Tonya 13.2, Plt Count 231, MPV 9.1, Immature Gran % (Auto) 0.400, Neut % (Auto) 82.2 H, Lymph % (Auto) 10.1 L, [place] % (Auto) 6.6, Eos % (Auto) 0.4, Baso % (Auto) 0.3, Absolute Neuts (auto) 10.3 H, Absolute Lymphs (auto) 1.27, Nucleated RBC % 0, PT 13.7, INR 1.0, APTT 31.0, Sodium 134, Potassium 4.1, Chloride 98, Carbon Dioxide 23.8, Anion Gap 13, BUN 12, Creatinine 0.67 L, Estim Creat Clear Calc 104.62, Est GFR (MDRD) Non-Af 100, BUN/Creatinine Ratio 17.5, Glucose 126 H, Calcium 9.5, Troponin T High Sens 28 H, NT pro BNP II 77 ABG Data ABG results: ABG 02/24/25 12:28 Specimen Type LUCIANA Sample Site Not entered VBG pH 7.43 H VBG pO2 59 H VBG HCO3 24 VBG Total CO2 25 VBG O2 Sat (Calc) 91 H VBG Base Excess 0 POC Mix VBG pCO2 Pt Tmp 36.4 L O2 Delivery Device Not entered Imaging Radiology Impression Chest CTA 02/24/25 11:55 IMPRESSION: Multiple bilateral pulmonary emboli. Thrombus is seen within the distal portion of the right and left pulmonary arteries. Infiltration and/or atelectasis at the lung bases worse at the left lung base. Reading Location: [id number] Assessment & Plan Assessment/Plan (1) Acute pulmonary embolism: (2) Hypoxia: PLAN: Plan Patient is a 59-year-old female who presented to [facility] ED on 02/24/2025 with chest discomfort and shortness of breath. 1. Acute bilateral PE with acute hypoxia ? Admit under inpatient status to PCU. CTA chest showed multiple bilateral pulmonary emboli with thrombus seen within the distal portion of the right and left pulmonary arteries, no right heart strain called. No prior history of DVT/PE. Not on home oxygen, was requiring 3 L nasal cannula at rest in the ED to maintain appropriate saturations. Venous duplex ultrasound and echo ordered. Will treat with heparin drip for now. If lower extremity ultrasound does not show enough clot burden to warrant consideration of thrombectomy, will be fine to transition to an oral anticoagulant. Wean supplemental oxygen as able. 2. Recent procedure for bladder prolapse ? Patient had a procedure for bladder problems done in [place] about 2 weeks prior to this admission. No operative complications and patient reports that she is doing well. Continue outpatient follow-up. 3. Class I obesity ? BMI 34 on admit. Complicates hospital course and care. DVT prophylaxis: Not indicated, on heparin drip CODE STATUS: Full code, verified Expect disposition: Home, 2 to 3 days Total clinical time spent by myself addressing the patient's medical issues, reviewing all the data, and collaborating with patient's care team: 60 minutes. Charges/Coding Visit Charges Inpatient E&M: 40789 Init Hosp L2
--- NOTE | 2025-02-24 13:43 | ECHOD_ITS ---
Reason For Study ECHO/Echo Complete
--- NOTE | 2025-02-24 13:43 | VDLE_ITS ---
Reason For Study VL/Venous Duplex US - Demetrius Extrem
[2025-02-24 15:00] LABS: Troponin T High Sens 2 HR 154 ng/L (<=14)
[2025-02-24 18:04] LABS: Troponin T High Sens 4 HR 180 ng/L (<=14)
[2025-02-24 18:59] LABS: Partial Thromboplast Time 78.7 Seconds (24.1-36.2)
[2025-02-25 01:30] VITALS: BP 134/84; PULSE 67; RESP 18; TEMP 36.6; O2SAT 97
[2025-02-25 02:19] LABS: Partial Thromboplast Time 68.6 Seconds (24.1-36.2)
[2025-02-25 05:29] VITALS: BP 122/76; PULSE 68; RESP 17; TEMP 36.8; O2SAT 98
[2025-02-25 05:34] LABS: Hematocrit 39.1 % (37-47); Hemoglobin 12.9 g/dL (12.0-15.0); Immature Granulocytes Count 0.030 X10^3/uL (0.0-0.0); Mean Corp Hgb Conc 33.0 g/dL (32-36); Mean Corpuscular Volume 89.7 fL (81-99); Mean Platelet Vol. 9.4 fl (6.2-12.0); NRBC Flagged by Analyzer 0 % (0-5); Platelet Count 220 K/mm3 (150-450); RBC Distribution Width CV 13.0 % (11.6-14.6); RBC Distribution Width SD 42.7 fl (35.1-43.9); Red Blood Count 4.36 M/mm3 (4.2-5.4); White Blood Count 8.8 K/mm3 (4.4-11.0)
[2025-02-25 06:10] LABS: Anion Gap 10 (5-15); BUN 9 mg/dL (4-19); BUN/Creat Ratio 14.6 RATIO (10-20); Calcium,Total 8.7 mg/dL (7.6-11.0); Carbon Dioxide 26.3 mmol/L (21.0-32.0); Chloride 100 mmol/L (98-108); Estimated Creatinine Clearance 114.14 ml/min (50-250); Glucose 116 mg/dL (70-99); Potassium 3.8 mmol/L (3.3-5.1)
[2025-02-25] MEDS: Ensure Plus High Protein 120 ML LIQUID PO ×3 (08:21→17:11)
[2025-02-25 08:30] VITALS: BP 117/71; PULSE 73; RESP 18; TEMP 36.7; O2SAT 94
[2025-02-25 09:04] LABS: Partial Thromboplast Time 52.4 Seconds (24.1-36.2)
[2025-02-25] MEDS: HEPARIN/D5w 25,000 UNITS 25,000 UNITS/250 ML IV.SOLN. 10.6 UNITS CONT INF (11:01)
--- NOTE | 2025-02-25 11:21 | PN.HOSP_ITS ---
Reason for Visit
--- NOTE | 2025-02-25 11:21 | PCM.PN.HOSP ---
Reason for Visit Chief Complaint: Chest discomfort and shortness of breath Objective Data Objective Data Vital Signs: Vital Signs Temp Pulse Resp BP Pulse Ox O2 Del Method O2 Flow Rate 98.0 F 73 18 117/71 94 Nasal Cannula 2 02/25/25 08:30 02/25/25 08:30 02/25/25 08:30 02/25/25 08:30 02/25/25 08:30 02/25/25 08:30 02/25/25 08:30 Oxygen Flow Rate (L/min) 2 Oxygen Delivery Method Nasal Cannula Weight: 223 lb 8.78 oz Body Mass Index (BMI) 36.1 Intake & Output: Intake and Output for Last 24 Hours 02/23/25 02/24/25 02/25/25 23:59 23:59 23:59 Intake Total 78.11 / 78.11 155.81 / 155.81 Balance 78.11 / 78.11 155.81 / 155.81 Lab / Micro Data 02/25/25 04:49 02/25/25 04:49 Labs: Laboratory Results - last 24 hr 02/24/25 12:14: WBC 12.5 H, RBC 4.59, Hgb 13.8, Hct 40.1, MCV 87.4, MCH 30.1, MCHC 34.4, RDW Std Deviation 42.3, RDW Coeff of Tonya 13.2, Plt Count 231, MPV 9.1, Immature Gran % (Auto) 0.400, Neut % (Auto) 82.2 H, Lymph % (Auto) 10.1 L, [place] % (Auto) 6.6, Eos % (Auto) 0.4, Baso % (Auto) 0.3, Absolute Neuts (auto) 10.3 H, Absolute Lymphs (auto) 1.27, Nucleated RBC % 0, PT 13.7, INR 1.0, APTT 31.0, Sodium 134, Potassium 4.1, Chloride 98, Carbon Dioxide 23.8, Anion Gap 13, BUN 12, Creatinine 0.67 L, Estim Creat Clear Calc 104.62, Est GFR (MDRD) Non-Af 100, BUN/Creatinine Ratio 17.5, Glucose 126 H, Calcium 9.5, Troponin T High Sens 28 H, NT pro BNP II 77 02/24/25 14:10: Troponin T Hi Sens 2 Hr 154 H* 02/24/25 16:24: Troponin T Hi Sens 4Hr 180 H* 02/24/25 18:40: APTT 78.7 H 02/25/25 01:54: APTT 68.6 H 02/25/25 04:49: WBC 8.8, RBC 4.36, Hgb 12.9, Hct 39.1, MCV 89.7, MCH 29.6, MCHC 33.0, RDW Std Deviation 42.7, RDW Coeff of Tonya 13.0, Plt Count 220, MPV 9.4, Immature Gran % (Auto) 0.300, Neut % (Auto) 71.8 H, Lymph % (Auto) 18.0 L, [place] % (Auto) 8.7, Eos % (Auto) 0.9, Baso % (Auto) 0.3, Absolute Neuts (auto) 6.3, Absolute Lymphs (auto) 1.58, Nucleated RBC % 0, Sodium 136, Potassium 3.8, Chloride 100, Carbon Dioxide 26.3, Anion Gap 10, BUN 9, Creatinine 0.63 L, Estim Creat Clear Calc 114.14, Est GFR (MDRD) Non-Af 101, BUN/Creatinine Ratio 14.6, Glucose 116 H, Calcium 8.7 02/25/25 08:40: APTT 52.4 H ABG Data ABG results: ABG 02/24/25 12:28 Specimen Type LUCIANA Sample Site Not entered VBG pH 7.43 H VBG pO2 59 H VBG HCO3 24 VBG Total CO2 25 VBG O2 Sat (Calc) 91 H VBG Base Excess 0 POC Mix VBG pCO2 Pt Tmp 36.4 L O2 Delivery Device Not entered Radiography Diagnostic Testing: Radiology Impression Chest CTA 02/24/25 11:55 IMPRESSION: Multiple bilateral pulmonary emboli. Thrombus is seen within the distal portion of the right and left pulmonary arteries. Infiltration and/or atelectasis at the lung bases worse at the left lung base. Reading Location: [id number] Echocardiogram 02/24/25 13:43 Interpretation Summary Normal LV size. Left ventricular systolic function is normal. The left ventricular ejection fraction is 55 %. Stage 1 diastolic dysfunction. The study was technically limited. The study was technically difficult. Ordering Physician: Kristopher Chopra Referring Physician: NO PCP Performed By: Malini Stone RCS Venous Doppler Study 02/24/25 13:43 Interpretation Summary Acute deep vein thrombosis noted in the right popliteal vein, tibioperoneal trunk vein, gastrocnemius vein,, soleus vein, posterior tibial vein. Deep veins of the left lower extremity are patent and compressible segmentally. There is no evidence of left lower extremity deep vein thrombosis. The bilateral great saphenous veins appear patent and compressible segmentally. Ordering Physician: Kristopher Chopra Referring Physician: N/A Performed By: Kelby Rendon RVT and Student Physical Exam Narrative Was on 3 L of oxygen currently on 2 L of oxygen. Assessment & Plan Assessment/Plan (1) Acute pulmonary embolism: (2) Hypoxia: PLAN: Plan Patient is a 59-year-old female who presented to [facility] ED on 02/24/2025 with chest discomfort and shortness of breath. 1. Acute bilateral PE with acute hypoxia ? Admit under inpatient status to PCU. CTA chest showed multiple bilateral pulmonary emboli with thrombus seen within the distal portion of the right and left pulmonary arteries, no right heart strain called. No prior history of DVT/PE. Not on home oxygen, was requiring 3 L nasal cannula at rest in the ED to maintain appropriate saturations. Venous duplex ultrasound and echo ordered. Will treat with heparin drip for now. If lower extremity ultrasound does not show enough clot burden to warrant consideration of thrombectomy, will be fine to transition to an oral anticoagulant. Wean supplemental oxygen as able. 2. Recent procedure for bladder prolapse ? Patient had a procedure for bladder problems done in [place] about 2 weeks prior to this admission. No operative complications and patient reports that she is doing well. Continue outpatient follow-up. 3. Class I obesity ? BMI 34 on admit. Complicates hospital course and care. DVT prophylaxis: Not indicated, on heparin drip CODE STATUS: Full code, verified Expect disposition: Home, 2 to 3 days Total clinical time spent by myself addressing the patient's medical issues, reviewing all the data, and collaborating with patient's care team: 60 minutes.
--- NOTE | 2025-02-25 11:58 | PN.HOSP_ITS ---
Reason for Visit
--- NOTE | 2025-02-25 11:58 | PCM.PN.HOSP ---
Reason for Visit Chief Complaint: Chest discomfort and shortness of breath Objective Data Objective Data Vital Signs: Vital Signs Temp Pulse Resp BP Pulse Ox O2 Del Method O2 Flow Rate 98.0 F 73 18 117/71 94 Nasal Cannula 2 02/25/25 08:30 02/25/25 08:30 02/25/25 08:30 02/25/25 08:30 02/25/25 08:30 02/25/25 08:30 02/25/25 08:30 Oxygen Flow Rate (L/min) 2 Oxygen Delivery Method Nasal Cannula Weight: 223 lb 8.78 oz Body Mass Index (BMI) 36.1 Intake & Output: Intake and Output for Last 24 Hours 02/23/25 02/24/25 02/25/25 23:59 23:59 23:59 Intake Total 78.11 / 78.11 155.81 / 155.81 Balance 78.11 / 78.11 155.81 / 155.81 Lab / Micro Data 02/25/25 04:49 02/25/25 04:49 Labs: Laboratory Results - last 24 hr 02/24/25 12:14: WBC 12.5 H, RBC 4.59, Hgb 13.8, Hct 40.1, MCV 87.4, MCH 30.1, MCHC 34.4, RDW Std Deviation 42.3, RDW Coeff of Tonya 13.2, Plt Count 231, MPV 9.1, Immature Gran % (Auto) 0.400, Neut % (Auto) 82.2 H, Lymph % (Auto) 10.1 L, [place] % (Auto) 6.6, Eos % (Auto) 0.4, Baso % (Auto) 0.3, Absolute Neuts (auto) 10.3 H, Absolute Lymphs (auto) 1.27, Nucleated RBC % 0, PT 13.7, INR 1.0, APTT 31.0, Sodium 134, Potassium 4.1, Chloride 98, Carbon Dioxide 23.8, Anion Gap 13, BUN 12, Creatinine 0.67 L, Estim Creat Clear Calc 104.62, Est GFR (MDRD) Non-Af 100, BUN/Creatinine Ratio 17.5, Glucose 126 H, Calcium 9.5, Troponin T High Sens 28 H, NT pro BNP II 77 02/24/25 14:10: Troponin T Hi Sens 2 Hr 154 H* 02/24/25 16:24: Troponin T Hi Sens 4Hr 180 H* 02/24/25 18:40: APTT 78.7 H 02/25/25 01:54: APTT 68.6 H 02/25/25 04:49: WBC 8.8, RBC 4.36, Hgb 12.9, Hct 39.1, MCV 89.7, MCH 29.6, MCHC 33.0, RDW Std Deviation 42.7, RDW Coeff of Tonya 13.0, Plt Count 220, MPV 9.4, Immature Gran % (Auto) 0.300, Neut % (Auto) 71.8 H, Lymph % (Auto) 18.0 L, [place] % (Auto) 8.7, Eos % (Auto) 0.9, Baso % (Auto) 0.3, Absolute Neuts (auto) 6.3, Absolute Lymphs (auto) 1.58, Nucleated RBC % 0, Sodium 136, Potassium 3.8, Chloride 100, Carbon Dioxide 26.3, Anion Gap 10, BUN 9, Creatinine 0.63 L, Estim Creat Clear Calc 114.14, Est GFR (MDRD) Non-Af 101, BUN/Creatinine Ratio 14.6, Glucose 116 H, Calcium 8.7 02/25/25 08:40: APTT 52.4 H ABG Data ABG results: ABG 02/24/25 12:28 Specimen Type LUCIANA Sample Site Not entered VBG pH 7.43 H VBG pO2 59 H VBG HCO3 24 VBG Total CO2 25 VBG O2 Sat (Calc) 91 H VBG Base Excess 0 POC Mix VBG pCO2 Pt Tmp 36.4 L O2 Delivery Device Not entered Radiography Diagnostic Testing: Radiology Impression Chest CTA 02/24/25 11:55 IMPRESSION: Multiple bilateral pulmonary emboli. Thrombus is seen within the distal portion of the right and left pulmonary arteries. Infiltration and/or atelectasis at the lung bases worse at the left lung base. Reading Location: [id number] Echocardiogram 02/24/25 13:43 Interpretation Summary Normal LV size. Left ventricular systolic function is normal. The left ventricular ejection fraction is 55 %. Stage 1 diastolic dysfunction. The study was technically limited. The study was technically difficult. Ordering Physician: Kristopher Chopra Referring Physician: NO PCP Performed By: Malini Stone RCS Venous Doppler Study 02/24/25 13:43 Interpretation Summary Acute deep vein thrombosis noted in the right popliteal vein, tibioperoneal trunk vein, gastrocnemius vein,, soleus vein, posterior tibial vein. Deep veins of the left lower extremity are patent and compressible segmentally. There is no evidence of left lower extremity deep vein thrombosis. The bilateral great saphenous veins appear patent and compressible segmentally. Ordering Physician: Kristopher Chopra Referring Physician: N/A Performed By: Kelby Rendon RVT and Student Physical Exam Narrative Seen and examined Patient had bladder sling surgery about 2 weeks ago Admitted with shortness of breath. No chest pain. Physical General: Alert, Oriented x3, Cooperative. BMI 36.1 Cayley per square meter obesity grade 2 HEENT: Atraumatic, PERRLA, EOMI, Normocephalic. Oral: No Gingival or Mucosal Lesions/ Ulcerations Neck: Supple, No JVD, Negative Carotid Bruits Chest wall/Lungs: Air entry diminished in bilateral lung bases. No crepitation/rhonchi. Mild hypoxia and clear to foxy Cardiovascular: Regular rate and rhythm, Normal S1,S2, No M/G/R Abdomen: Bowel Sounds Present, Soft, Non Tender, Non-Distended : No dysuria. No renal angle tenderness. No suprapubic tenderness. Extremities: No edema, Capillary Refill Less than 3 Seconds Skin: No rashes, No breakdown Musculoskeletal: Right leg little more swollen than the left leg. No tenderness to Palpation of Joints or Extremities Neurological: Cranial nerves II-XII grossly intact, DTR 2+/4. No acute focal neurological deficit. Psych/Mental Status: Normal Affect, Appropriate. Assessment & Plan Assessment/Plan (1) Acute pulmonary embolism: (2) Hypoxia: PLAN: Plan Patient is a 59-year-old female who presented to [facility] ED on 02/24/2025 with chest discomfort and shortness of breath. 1. Acute bilateral distal right and left pulmonary artery pulmonary embolism with acute hypoxia secondary to right lower extremity DVT, provoked, ? Admit under inpatient status to PCU. CTA chest showed multiple bilateral pulmonary emboli with thrombus seen within the distal portion of the right and left pulmonary arteries, no right heart strain called. No prior history of DVT/PE. Not on home oxygen, was requiring 3 L nasal cannula at rest in the ED to maintain appropriate saturations. 02/25: Heparin drip changed to Lovenox for effective and steady state plasma concentration. Echo shows normal RV size and systolic function. EF 55% with stage I pressure dysfunction. Normal tricuspid valve. Mild troponin elevation nonischemic in nature, due to acute myocardial injury from increased cardiac demand from pulmonary embolism. Lower extremity venous duplex shows acute DVT in right popliteal vein, tibioperoneal trunk vein, gastrocnemius, soleus and posterior tibial veins. 2. Recent procedure for bladder prolapse ? Patient had a procedure for bladder problems done in [place] about 2 weeks prior to this admission. No operative complications and patient reports that she is doing well. Continue outpatient follow-up. 3. Class I obesity ? BMI 34 on admit. Complicates hospital course and care. DVT prophylaxis: Not indicated, on heparin drip CODE STATUS: Full code, verified Laboratory Results 02/24/25 16:24: Troponin T Hi Sens 4Hr 180 H* 02/24/25 18:40: APTT 78.7 H 02/25/25 01:54: APTT 68.6 H 02/25/25 04:49: WBC 8.8, RBC 4.36, Hgb 12.9, Hct 39.1, MCV 89.7, MCH 29.6, MCHC 33.0, RDW Std Deviation 42.7, RDW Coeff of Tonya 13.0, Plt Count 220, MPV 9.4, Immature Gran % (Auto) 0.300, Neut % (Auto) 71.8 H, Lymph % (Auto) 18.0 L, [place] % (Auto) 8.7, Eos % (Auto) 0.9, Baso % (Auto) 0.3, Absolute Neuts (auto) 6.3, Absolute Lymphs (auto) 1.58, Nucleated RBC % 0, Sodium 136, Potassium 3.8, Chloride 100, Carbon Dioxide 26.3, Anion Gap 10, BUN 9, Creatinine 0.63 L, Estim Creat Clear Calc 114.14, Est GFR (MDRD) Non-Af 101, BUN/Creatinine Ratio 14.6, Glucose 116 H, Calcium 8.7 02/25/25 08:40: APTT 52.4 H Clinical Impression(s) from Imaging Studies Chest CTA 02/24/25 11:55 IMPRESSION: Multiple bilateral pulmonary emboli. Thrombus is seen within the distal portion of the right and left pulmonary arteries. Infiltration and/or atelectasis at the lung bases worse at the left lung base. Reading Location: [id number] Echocardiogram 02/24/25 13:43 Interpretation Summary Normal LV size. Left ventricular systolic function is normal. The left ventricular ejection fraction is 55 %. Stage 1 diastolic dysfunction. The study was technically limited. The study was technically difficult. Ordering Physician: Kristopher Chopra Referring Physician: NO PCP Performed By: Malini Stone RCS Venous Doppler Study 02/24/25 13:43 Interpretation Summary Acute deep vein thrombosis noted in the right popliteal vein, tibioperoneal trunk vein, gastrocnemius vein,, soleus vein, posterior tibial vein. Deep veins of the left lower extremity are patent and compressible segmentally. There is no evidence of left lower extremity deep vein thrombosis. The bilateral great saphenous veins appear patent and compressible segmentally. Ordering Physician: Kristopher Chopra Referring Physician: N/A Performed By: Kelby Rendon RVT and Student Charges/Coding Visit Charges Inpatient E&M: 56080 Subs Hosp L2
--- NOTE | 2025-02-25 12:43 | CASEMGMT ---
GUERA REED Assessment Face to Face with patient for initial transition planning/care coordination assessment. GUERA REED introduced self and role at [facility], pt voices understanding. Pt is A&Ox4 and is resting comfortably in bed and is calm. Pt's at the bedside. Care providers, pharmacy, and demographics verified. Admitting dx: Acute PE with Hypoxia PCP: No PCP. Provider list given and encouraged establishment Specialists: Denies Preferred Pharmacy: [facility] Insurance: [employer] Prescription Benefit: Yes LNOK: Jadon (H) Living Arrangements: Pt lives with her and adult daughter in a single story home with a flat entrance ADLs/IADLs: Pt states that she is indep and denies concerns Transportation: Hires drivers. Neighbor also drives DME: Denies all current DME uses or needs. However, Pt is currently requiring additional oxygen and may qualify for home oxygen use. A verbal list of local in-network DME companies were provided to the pt at this time. Pt prefers [employer]Pt states that she does have electricity at home. HHC/SNF: Denies hx or needs Pt?s goal: Home Plan: Home with family once medically ready, follow for oxygen needs. Pt to get established with a PCP. PCU staff reports that the pt may DC home on Eliquis. Eliquis savings card provided to the pt at this time and informed that this can only be used once. Pt thanks this keno writer/runner and denies any further DC needs or concerns. Annette Troy RN, CM
[2025-02-25 14:08] VITALS: BP 108/69; PULSE 78; RESP 18; TEMP 36.9; O2SAT 95
--- NOTE | 2025-02-25 16:41 | CASEMGMT ---
Social Work SW met with pt and pt's spouse and assisted both in completing HCPOA and Living Will. Pt's advance directives placed on pt chart and originals given to pt. Pt's spouse Jadon Gil does not have a medical record at [facility]. Originals given to Jadon. ALEXANDER Rodas
[2025-02-25 17:01] LABS: Partial Thromboplast Time 44.9 Seconds (24.1-36.2)
[2025-02-25 20:05] VITALS: BP 133/68; PULSE 74; RESP 18; TEMP 36.8; O2SAT 95
[2025-02-25 20:35] VITALS: O2SAT 97
[2025-02-25] MEDS: Senna/Docusate Sodium 1 Tablet 2 TABLET PO (22:12)
[2025-02-26 02:55] VITALS: BP 124/73; PULSE 67; RESP 18; TEMP 36.9; O2SAT 97
[2025-02-26 06:58] VITALS: O2SAT 94
[2025-02-26 07:23] LABS: Hematocrit 36.0 % (37-47); Hemoglobin 12.0 g/dL (12.0-15.0); Immature Granulocytes Count 0.030 X10^3/uL (0.0-0.0); Mean Corp Hgb Conc 33.3 g/dL (32-36); Mean Corpuscular Volume 90.2 fL (81-99); Mean Platelet Vol. 9.2 fl (6.2-12.0); NRBC Flagged by Analyzer 0 % (0-5); Platelet Count 229 K/mm3 (150-450); RBC Distribution Width CV 12.9 % (11.6-14.6); RBC Distribution Width SD 42.9 fl (35.1-43.9); Red Blood Count 3.99 M/mm3 (4.2-5.4); White Blood Count 5.7 K/mm3 (4.4-11.0)
[2025-02-26 07:48] LABS: Anion Gap 9 (5-15); BUN 12 mg/dL (4-19); BUN/Creat Ratio 17.6 RATIO (10-20); Calcium,Total 8.8 mg/dL (7.6-11.0); Carbon Dioxide 27.0 mmol/L (21.0-32.0); Chloride 102 mmol/L (98-108); Estimated Creatinine Clearance 108.95 ml/min (50-250); Glucose 110 mg/dL (70-99); Potassium 3.7 mmol/L (3.3-5.1)
--- NOTE | 2025-02-26 09:11 | DCINST_ITS ---
Discharge Instructions
--- NOTE | 2025-02-26 09:11 | PCM.DC ---
Discharge Instructions DC O2, CPAP, BIPAP needs Home O2 Discharge instructions: Yes Type of respiratory needs?: Oxygen Oxygen frequency: Continuous Continuous oxygen liters per minute: 2 Dressing / Incision Discharge Activity: Return to Normal Activity Weight Bearing Status: Weight bearing as tolerated Dressing / Incision Call your doctor if you observe: Fever of 101 or Higher, Coldness, Increased Pain, Numbness or Tingling, Change in Color, Inability to urinate, Inability to have a bowel movement, Shortness of breath, Dizziness, Fainting spells, Swelling in the ankles, Chest pain, Prolonged hiccupping, Increased palpitations (irregular heartbeat) and Calf discomfort Follow Up Care When: IN 2 WEEKS Test Results: Test results from this visit will be discussed in further detail at your follow-up appointment, if applicable. Discharge Plan Admission Admit Date/Time: 02/24/25 13:40 Attending Provider: Isma Orozco Primary Care Provider: Care Physician,No Primary Consulting Providers: Kristopher Chopra Discharge Orders/Prescriptions Prescriptions: New Eliquis DVT-PE Treat 30D Start 5 mg (74 tabs) tablets,dose pack 5 mg PO BID Qty: 74 0RF Rx Instructions: 10 mg (2 tabs) twice daily for 7 days till 03/04/2025 and then twice daily to continue Continued oxycodone 5 mg tablet 5 mg PO Q6H PRN (Reason: pain) docusate sodium 100 mg capsule 100 mg PO BID Held estradiol 0.01 % (0.1 mg/gram) cream 1 g vaginal .COMPLEX Hold Instructions: Hold for 2 weeks Rx Instructions: 1 g vaginally twice weekly on Mondays and Fridays; Referrals / Follow Up: Cornell Cronin DO [Med Staff - Active Staff, Pulmonary Medicine] - Within 1 Month Referral Note: for PE Andrew Álvarez MD [Med Staff - Active Staff, Oncology] - Within 3 Months Referral Note: For DVT and bilateral PE Care Physician,No Primary [Primary Care Provider, Medical] Disposition Disposition (needs filled in before D/C Order can be placed): Home, Self Care
[2025-02-26 09:15] VITALS: BP 127/69; PULSE 79; RESP 14; TEMP 36.3; O2SAT 98
--- NOTE | 2025-02-26 09:16 | PCM.DC.SUM ---
Providers Date of Admission: 02/24/25 Date of Discharge: 02/26/25 Primary Care Physician: No Primary Care Phys Reason For Visit: ACUTE PE W/ HYPOXIA Diagnosis Discharge Diagnosis (1) Acute pulmonary embolism: Status: Acute Code(s): I26.99 - Other pulmonary embolism without acute cor pulmonale (2) Hypoxia: Status: Acute Code(s): R09.02 - Hypoxemia Plan Patient is a 59-year-old female who presented to [facility] ED on 02/24/2025 with chest discomfort and shortness of breath. 1. Acute bilateral distal right and left pulmonary artery pulmonary embolism with acute hypoxia secondary to right lower extremity DVT, provoked, ? Admit under inpatient status to PCU. CTA chest showed multiple bilateral pulmonary emboli with thrombus seen within the distal portion of the right and left pulmonary arteries, no right heart strain called. No prior history of DVT/PE. Not on home oxygen, was requiring 3 L nasal cannula at rest in the ED to maintain appropriate saturations. 02/25: Heparin drip changed to Lovenox for effective and steady state plasma concentration. Echo shows normal RV size and systolic function. EF 55% with stage I pressure dysfunction. Normal tricuspid valve. Mild troponin elevation nonischemic in nature, due to acute myocardial injury from increased cardiac demand from pulmonary embolism. Lower extremity venous duplex shows acute DVT in right popliteal vein, tibioperoneal trunk vein, gastrocnemius, soleus and posterior tibial veins. 02/26:Duration of treatment at least 3 months but optima 6 months for provoked DVT/PE. Patient discharged on PE dose of Eliquis. Advised follow-up with pulmonary clinic and retention manager. 2. Recent procedure for bladder prolapse ? Patient had a procedure for bladder problems done in [place] about 2 weeks prior to this admission. No operative complications and patient reports that she is doing well. Continue outpatient follow-up. 3. Class I obesity ? BMI 34 on admit. Complicates hospital course and care. DVT prophylaxis: Not indicated, on heparin drip CODE STATUS: Full code, verified Laboratory Results 02/24/25 16:24: Troponin T Hi Sens 4Hr 180 H* 02/24/25 18:40: APTT 78.7 H 02/25/25 01:54: APTT 68.6 H 02/25/25 04:49: WBC 8.8, RBC 4.36, Hgb 12.9, Hct 39.1, MCV 89.7, MCH 29.6, MCHC 33.0, RDW Std Deviation 42.7, RDW Coeff of Tonya 13.0, Plt Count 220, MPV 9.4, Immature Gran % (Auto) 0.300, Neut % (Auto) 71.8 H, Lymph % (Auto) 18.0 L, [place] % (Auto) 8.7, Eos % (Auto) 0.9, Baso % (Auto) 0.3, Absolute Neuts (auto) 6.3, Absolute Lymphs (auto) 1.58, Nucleated RBC % 0, Sodium 136, Potassium 3.8, Chloride 100, Carbon Dioxide 26.3, Anion Gap 10, BUN 9, Creatinine 0.63 L, Estim Creat Clear Calc 114.14, Est GFR (MDRD) Non-Af 101, BUN/Creatinine Ratio 14.6, Glucose 116 H, Calcium 8.7 02/25/25 08:40: APTT 52.4 H Clinical Impression(s) from Imaging Studies Chest CTA 02/24/25 11:55 IMPRESSION: Multiple bilateral pulmonary emboli. Thrombus is seen within the distal portion of the right and left pulmonary arteries. Infiltration and/or atelectasis at the lung bases worse at the left lung base. Reading Location: [id number] Echocardiogram 02/24/25 13:43 Interpretation Summary Normal LV size. Left ventricular systolic function is normal. The left ventricular ejection fraction is 55 %. Stage 1 diastolic dysfunction. The study was technically limited. The study was technically difficult. Ordering Physician: Kristopher Chopra Referring Physician: BERT PCP Performed By: Malini Stone RCS Venous Doppler Study 02/24/25 13:43 Interpretation Summary Acute deep vein thrombosis noted in the right popliteal vein, tibioperoneal trunk vein, gastrocnemius vein,, soleus vein, posterior tibial vein. Deep veins of the left lower extremity are patent and compressible segmentally. There is no evidence of left lower extremity deep vein thrombosis. The bilateral great saphenous veins appear patent and compressible segmentally. Ordering Physician: Kristopher Chopra Referring Physician: N/A Performed By: Kelby Rendon RVT and Student Medications at Discharge Home Medications docusate sodium 100 mg capsule 100 mg PO BID constipation 02/24/25 estradiol 0.01% (0.1 mg/gram) vaginal cream 1 g vaginal .COMPLEX 02/24/25 Held on 02/26/25. Instructions: Hold for 2 weeks oxycodone 5 mg tablet 5 mg PO Q6H PRN pain 02/24/25 apixaban 5 mg (74 tabs) tablets in a dose pack (Eliquis DVT-PE Treat 30D Start) 5 mg PO BID #74 tabs 02/26/25 Physical Exam Narrative Seen and examined Dose of the Eliquis discussed with the patient and . Patient had bladder sling surgery about 2 weeks ago Admitted with shortness of breath. No chest pain. Physical General: Alert, Oriented x3, Cooperative. BMI 36.1 Cayley per square meter obesity grade 2 HEENT: Atraumatic, PERRLA, EOMI, Normocephalic. Oral: No Gingival or Mucosal Lesions/ Ulcerations Neck: Supple, No JVD, Negative Carotid Bruits Chest wall/Lungs: Air entry diminished in bilateral lung bases. No crepitation/rhonchi. Hypoxia resolved. Cardiovascular: Regular rate and rhythm, Normal S1,S2, No M/G/R Abdomen: Bowel Sounds Present, Soft, Non Tender, Non-Distended : No dysuria. No renal angle tenderness. No suprapubic tenderness. Extremities: No edema, Capillary Refill Less than 3 Seconds Skin: No rashes, No breakdown Musculoskeletal: Right leg little more swollen than the left leg. No tenderness to Palpation of Joints or Extremities Neurological: Cranial nerves II-XII grossly intact, DTR 2+/4. No acute focal neurological deficit. Psych/Mental Status: Normal Affect, Appropriate. Weight / BMI Weight Weight: 223 lb 8.78 oz Body Mass Index (BMI) 36.1 ABG / Lab / Microbiology Data 02/26/25 06:54 02/26/25 06:54 Laboratory: Laboratory Results - last 24 hr 02/26/25 06:54: WBC 5.7, RBC 3.99 L, Hgb 12.0, Hct 36.0 L, MCV 90.2, MCH 30.1, MCHC 33.3, RDW Std Deviation 42.9, RDW Coeff of Tonya 12.9, Plt Count 229, MPV 9.2, Immature Gran % (Auto) 0.500, Neut % (Auto) 55.3, Lymph % (Auto) 30.3, [place] % (Auto) 9.3, Eos % (Auto) 4.2, Baso % (Auto) 0.4, Absolute Neuts (auto) 3.1, Absolute Lymphs (auto) 1.72, Nucleated RBC % 0, Sodium 138, Potassium 3.7, Chloride 102, Carbon Dioxide 27.0, Anion Gap 9, BUN 12, Creatinine 0.66 L, Estim Creat Clear Calc 108.95, Est GFR (MDRD) Non-Af 100, BUN/Creatinine Ratio 17.6, Glucose 110 H, Calcium 8.8 D/C Instructions Weight Bearing Status: Weight bearing as tolerated Call your doctor if you observe: Fever of 101 or Higher, Coldness, Increased Pain, Numbness or Tingling, Change in Color, Inability to urinate, Inability to have a bowel movement, Shortness of breath, Dizziness, Fainting spells, Swelling in the ankles, Chest pain, Prolonged hiccupping, Increased palpitations (irregular heartbeat) and Calf discomfort DC O2, CPAP, BIPAP Needs Home O2 Discharge instructions: Yes Type of respiratory needs?: Oxygen Oxygen frequency: Continuous Continuous oxygen liters per minute: 2 DC home with Oxygen: Yes Home O2 MD Review: I have reviewed the oxygen testing, and the patient qualifies for home oxygen equipment and portability. The patient is mobile in the home and the community. When: IN 2 WEEKS Meaningful Use Info Meaningful Use Meaningful Use Diagnoses (Choose all that apply): VTE VTE Anticoag overlap given w/in hospital stay or rx'd at dc?: No Reason overlap not ordered, prescribed, or given for 5 days: Procedure Not Indicated Discharge Plan Admission Admit Date/Time: 02/24/25 13:40 Attending Provider: Isma Orozco Primary Care Provider: Care Physician,No Primary Consulting Providers: Kristopher Chopra Discharge Orders/Prescriptions Prescriptions: New Eliquis DVT-PE Treat 30D Start 5 mg (74 tabs) tablets,dose pack 5 mg PO BID Qty: 74 0RF Rx Instructions: 10 mg (2 tabs) twice daily for 7 days till 03/04/2025 and then twice daily to continue Continued oxycodone 5 mg tablet 5 mg PO Q6H PRN (Reason: pain) docusate sodium 100 mg capsule 100 mg PO BID Held estradiol 0.01 % (0.1 mg/gram) cream 1 g vaginal .COMPLEX Hold Instructions: Hold for 2 weeks Rx Instructions: 1 g vaginally twice weekly on Mondays and Fridays; Referrals / Follow Up: Cornell Cronin DO [Med Staff - Active Staff, Pulmonary Medicine] - Within 1 Month Referral Note: for PE Andrew Álvarez MD [Med Staff - Active Staff, Oncology] - Within 3 Months Referral Note: For DVT and bilateral PE Care Physician,No Primary [Primary Care Provider, Medical] Disposition Disposition (needs filled in before D/C Order can be placed): Home, Self Care Charges/Coding Visit Charges Inpatient E&M: 42207 Disch Hosp >30min
[2025-02-26 09:37] VITALS: BP 127/69; PULSE 79; RESP 14; TEMP 36.3; O2SAT 98
[2025-02-26] MEDS: Senna/Docusate Sodium 1 Tablet 2 TABLET PO (09:41)
[2025-02-26] MEDS: Ensure Plus High Protein 120 ML LIQUID PO (09:41)
[2025-02-26 09:50] VITALS: O2SAT 93; O2SAT 98
== END 2025-02-26 11:25 | disposition home or self-care (01) | DRG 176 ==
LOC: ED 12:10 → PCU 14:27
PROVIDERS: Admitting Provider Hospitalist; Emergency Provider Student in an Organized Health Care Education/Training Program; Visit Provider Internal Medicine
DX: I26.99 Other pulmonary embolism without acute cor pulmonale (principal); I5A Non-ischemic myocardial injury (non-traumatic); I82.431 Acute embolism and thrombosis of right popliteal vein; I82.441 Acute embolism and thrombosis of right tibial vein; I82.451 Acute embolism and thrombosis of right peroneal vein; E66.811 Obesity, class 1; I82.461 Acute embolism and thrombosis of right calf muscular vein; R09.02 Hypoxemia; Z68.34 Body mass index [BMI] 34.0-34.9, adult
CPT/HCPCS: 36415; 71275; 80048; 82803; 83880; 84484; 85025; 85610; 85730; 93005; 93306; 93970; 94668; 97802; 99285; Q9967; A4216